=== PATIENT | female | born 1970 | race Caucasian/White ===

== ENCOUNTER 2018-07-03 14:02 | Inpatient (IN) | payer MEDICARE, MEDICAID ==
[~2018-07-03] VITALS: Ht 177.8 cm; Wt 118.8 kg
[~2018-07-03 14:02] MED LIST: AMLO2.5T PO; AMLO5TAB2 PO; ASPI325T17 PO; ATOR40TA78 PO; CARV-39 PO; CHOL200074 PO; ERGO500017 PO; ESOM20CA PO; FOLI0.4T2 PO; LEVE250T5 PO; LISI-170 PO; LORA1TAB PO; MAGN250T9 PO; MELA10TA PO; MULT1TAB60 PO; OXCA300T PO; PARO30TA3 PO; PHEN100C PO; ROSU10TA PO; SODI650T PO; UBID200C7 PO; VENTOLIN HFA; VITA1TAB19 PO; [UNRECOGNIZED DRUG - CODE] PO
[2018-07-03] MEDS ORDERED: CALC480G PO (14:25)
[2018-07-03] MEDS ORDERED: UBID100C24 PO (14:25)
[2018-07-03] MEDS ORDERED: ASPI-515 PO (14:25)
[2018-07-03] MEDS ORDERED: FOLI0.4T2 PO (14:25)
[2018-07-03] MEDS ORDERED: PHEN50TA4 PO (14:25)
[2018-07-03] MEDS ORDERED: RANI150C PO (14:25)
[2018-07-03] MEDS ORDERED: MELA5TAB10 SL (14:25)
[2018-07-03] MEDS ORDERED: LYZINE PO (14:25)
[2018-07-03] MEDS ORDERED: CHOL2000 PO (14:25)
[2018-07-03 14:50] LABS: MICROSCOPIC AUTO
[2018-07-03 15:06] LABS: CULTURE INDICATED? YES
[2018-07-03 15:23] LABS: ALBUMIN 2.7 g/dL (3.4-5.0); ANION GAP 8 mmol/L (5-15); CALCIUM 8.1 mg/dL (8.5-10.1); CHLORIDE 113 mmol/L (98-107); CREATININE 3.86 mg/dL (0.55-1.02)
[2018-07-03 15:27] LABS: TROPONIN I 0.049 ng/mL (0.000-0.045)
[2018-07-03 15:32] LABS: BASOPHILS # (AUTO) 0.03 x10^3/uL (0-0.1); BASOPHILS % (AUTO) 0 % (0-1); EOSINOPHILS # (AUTO) 0.29 x10^3/uL (0-0.4); EOSINOPHILS % (AUTO) 3 % (1-7); LYMPHOCYTES # (AUTO) 2.75 x10^3/uL (1-3.4); LYMPHOCYTES % (AUTO) 27 % (22-44); MD NO; MEAN CORPUSCULAR HEMOGLOBIN 32.4 pg (27.0-34.8); MEAN CORPUSCULAR HGB CONC 34.3 g/dL (32.4-35.8); MEAN CORPUSCULAR VOLUME 94.6 fL (80-100); MEAN PLATELET VOLUME 8.1 fL (7.4-10.4); MONOCYTES # (AUTO) 0.67 x10^3/uL (0.2-0.8); MONOCYTES % (AUTO) 7 % (2-9); NEUTROPHILS # (AUTO) 6.36 x10^3/uL (1.8-6.8); NEUTROPHILS % (AUTO) 63 % (42-75); PLATELET COUNT 212 x10^3/uL (130-400); RED BLOOD COUNT 3.33 x10^6/uL (3.82-5.3); RED CELL DISTRIBUTION WIDTH 12.8 % (9.6-15.2)
[2018-07-03] MEDS ORDERED: CEFTRIAXONE 1,000 MG in SODIUM CHLORIDE 0.9% 50 ML IV ONE (16:00)
[2018-07-03] MEDS ORDERED: CEFTRIAXONE PMX 1GM/50ML 50 ML ONE (16:15)
[2018-07-03] MEDS ORDERED: DOCUSATE 100 MG CAPSULE PO PRN (17:00)
[2018-07-03] MEDS ORDERED: SODIUM CHLORIDE 0.9% 1,000ML IVBOLUS ONE (17:00)
[2018-07-03] MEDS ORDERED: POLYETHYLENE GLYCOL 17 GM PACKET PO PRN (17:00)
[2018-07-03] MEDS ORDERED: ONDANSETRON 2MG/ML, 2ML IVPush PRN (17:00)
[2018-07-03] MEDS ORDERED: ERGOCALCIFEROL 50,000 UNIT CAPSULE PO SCH (17:00)
[2018-07-03 17:22] LABS: THYROID STIMULATING HORMONE 4.34 mIU/L (0.358-3.740)
[2018-07-03 17:52] VITALS: BP 98/61
[2018-07-03] MEDS: SODIUM CHLORIDE 0.9% 1,000 ML IV SCH (18:20)
[2018-07-03 20:09] VITALS: BP 88/52
[2018-07-03 20:10] VITALS: BP 130/80
[2018-07-03 20:18] VITALS: BP 130/75
[2018-07-03] MEDS: HEPARIN 5,000 UNITS/ML, 1ML SQ SCH (20:27)
[2018-07-03] MEDS: PHENYTOIN 100 MG CAPSULE PO SCH (20:28)
[2018-07-03] MEDS: LORazepam 1MG TABLET PO SCH (20:28)
[2018-07-03] MEDS: SODIUM BICARBONATE 650 MG TABLET PO SCH (20:28)
[2018-07-03] MEDS: LEVETIRACETAM 500 MG TABLET PO SCH (20:28)
[2018-07-03] MEDS: ATORVASTATIN 40 MG TABLET PO SCH (20:28)
[2018-07-03] MEDS: OXCARBAZEPINE 300MG TABLET PO SCH (20:31)
[2018-07-03] MEDS ORDERED: MELATONIN 5 MG SL SCH (21:00)
[2018-07-04 01:27] VITALS: BP_SYST 126; BP_SYST 127; BP_SYST 97; BP_DIAS 61; BP_DIAS 65; BP_DIAS 76
[2018-07-04] MEDS: SODIUM CHLORIDE 0.9% 1,000 ML IV SCH ×2 (03:08→12:41)
[2018-07-04] MEDS: HEPARIN 5,000 UNITS/ML, 1ML SQ SCH ×3 (03:17→21:00)
[2018-07-04 05:25] LABS: BASOPHILS # (AUTO) 0.03 x10^3/uL (0-0.1); BASOPHILS % (AUTO) 0 % (0-1); EOSINOPHILS # (AUTO) 0.21 x10^3/uL (0-0.4); EOSINOPHILS % (AUTO) 2 % (1-7); LYMPHOCYTES # (AUTO) 2.04 x10^3/uL (1-3.4); LYMPHOCYTES % (AUTO) 21 % (22-44); MD NO; MEAN CORPUSCULAR HEMOGLOBIN 32.9 pg (27.0-34.8); MEAN PLATELET VOLUME 7.9 fL (7.4-10.4); MONOCYTES # (AUTO) 0.57 x10^3/uL (0.2-0.8); MONOCYTES % (AUTO) 6 % (2-9); NEUTROPHILS # (AUTO) 6.73 x10^3/uL (1.8-6.8); NEUTROPHILS % (AUTO) 70 % (42-75); PLATELET COUNT 181 x10^3/uL (130-400); RED BLOOD COUNT 2.93 x10^6/uL (3.82-5.3); RED CELL DISTRIBUTION WIDTH 12.7 % (9.6-15.2)
[2018-07-04 05:26] LABS: ANION GAP 4 mmol/L (5-15); CALCIUM 7.8 mg/dL (8.5-10.1); CHLORIDE 115 mmol/L (98-107); CREATININE 3.78 mg/dL (0.55-1.02)
[2018-07-04 07:50] VITALS: BP 104/54
[2018-07-04 07:53] VITALS: BP 105/56
[2018-07-04 07:55] VITALS: BP 106/66
[2018-07-04] MEDS: CHOLECALCIFEROL 1,000 UNIT TABLET PO SCH (08:47)
[2018-07-04] MEDS: FOLIC ACID 1 MG TABLET PO SCH (08:47)
[2018-07-04] MEDS: SODIUM BICARBONATE 650 MG TABLET PO SCH ×3 (08:47→21:28)
[2018-07-04] MEDS: ASPIRIN 325 MG TABLET EC PO SCH (08:48)
[2018-07-04] MEDS: OXCARBAZEPINE 300MG TABLET PO SCH ×2 (08:49→21:28)
[2018-07-04] MEDS: PHENYTOIN 100 MG CAPSULE PO SCH ×3 (08:49→21:28)
[2018-07-04] MEDS: FAMOTIDINE 20 MG TABLET PO SCH (08:50)
[2018-07-04] MEDS: LEVETIRACETAM 500 MG TABLET PO SCH ×3 (08:50→21:28)
[2018-07-04] MEDS: PANTOPROZOLE 40MG TABLET PO SCH (08:51)
[2018-07-04] MEDS: LORazepam 1MG TABLET PO SCH ×3 (08:57→21:28)
[2018-07-04] MEDS ORDERED: TEMPLATE NON-FORMULARY MED. (Ubidecarenone (Coq-10) 100 MG) PO SCH (09:00)
[2018-07-04] MEDS ORDERED: LYZINE PO SCH (09:00)
[2018-07-04] MEDS ORDERED: SODIUM CHLORIDE 0.9% 1,000ML IVBOLUS ONE (09:30)
[2018-07-04] MEDS ORDERED: MAGNESIUM SULFATE PMX 2GM/50ML 50 ML IV ONE (09:30)
[2018-07-04] MEDS: ACETAMINOPHEN 325 MG TABLET PO PRN (10:04)
[2018-07-04] MEDS ORDERED: CEFTRIAXONE 1,000 MG IM SCH (10:30)
[2018-07-04 14:00] VITALS: BP 98/59
[2018-07-04] MEDS: CEFTRIAXONE 1,000 MG in SODIUM CHLORIDE 0.9% 50 ML IVPB SCH (15:43)
[2018-07-04 20:00] VITALS: BP 101/51
[2018-07-04] MEDS: ATORVASTATIN 40 MG TABLET PO SCH (21:28)
[2018-07-05 01:42] VITALS: BP_SYST 111; BP_SYST 122; BP_DIAS 47; BP_DIAS 62; BP_DIAS 79
[2018-07-05] MEDS: SODIUM CHLORIDE 0.9% 1,000 ML IV SCH ×3 (01:45→21:38)
[2018-07-05] MEDS: HEPARIN 5,000 UNITS/ML, 1ML SQ SCH ×3 (05:05→21:00)
[2018-07-05 07:21] VITALS: BP_SYST 107; BP_SYST 124; BP_DIAS 56; BP_DIAS 74; BP_DIAS 78
[2018-07-05] MEDS: FAMOTIDINE 20 MG TABLET PO SCH (09:09)
[2018-07-05] MEDS: SODIUM BICARBONATE 650 MG TABLET PO SCH ×3 (09:09→21:03)
[2018-07-05] MEDS: FOLIC ACID 1 MG TABLET PO SCH (09:09)
[2018-07-05] MEDS: LEVETIRACETAM 500 MG TABLET PO SCH ×3 (09:09→21:02)
[2018-07-05] MEDS: PHENYTOIN 100 MG CAPSULE PO SCH ×3 (09:09→20:59)
[2018-07-05] MEDS: CHOLECALCIFEROL 1,000 UNIT TABLET PO SCH (09:10)
[2018-07-05] MEDS: OXCARBAZEPINE 300MG TABLET PO SCH ×2 (09:10→20:58)
[2018-07-05] MEDS: ASPIRIN 325 MG TABLET EC PO SCH (09:10)
[2018-07-05] MEDS: LORazepam 1MG TABLET PO SCH ×3 (09:10→20:59)
[2018-07-05] MEDS: PANTOPROZOLE 40MG TABLET PO SCH (09:10)
[2018-07-05 09:25] LABS: ANION GAP 9 mmol/L (5-15); CALCIUM 8.4 mg/dL (8.5-10.1); CHLORIDE 115 mmol/L (98-107); CREATININE 3.47 mg/dL (0.55-1.02)
[2018-07-05] MEDS: ACETAMINOPHEN 325 MG TABLET PO PRN (11:46)
[2018-07-05 14:00] VITALS: BP 161/78
[2018-07-05] MEDS: CEFTRIAXONE 1,000 MG in SODIUM CHLORIDE 0.9% 50 ML IVPB SCH (15:32)
[2018-07-05 16:45] VITALS: BP 130/81
[2018-07-05 20:00] VITALS: BP 148/81
[2018-07-05] MEDS: ATORVASTATIN 40 MG TABLET PO SCH (20:59)
[2018-07-06 01:51] VITALS: BP 112/60
[2018-07-06] MEDS: HEPARIN 5,000 UNITS/ML, 1ML SQ SCH ×2 (05:00→12:43)
[2018-07-06 07:08] VITALS: BP 147/97
[2018-07-06] MEDS: SODIUM BICARBONATE 650 MG TABLET PO SCH ×2 (07:54→16:11)
[2018-07-06] MEDS: FOLIC ACID 1 MG TABLET PO SCH (07:54)
[2018-07-06] MEDS: OXCARBAZEPINE 300MG TABLET PO SCH (07:54)
[2018-07-06] MEDS: LORazepam 1MG TABLET PO SCH ×2 (07:54→16:11)
[2018-07-06] MEDS: ASPIRIN 325 MG TABLET EC PO SCH (07:54)
[2018-07-06] MEDS: PHENYTOIN 100 MG CAPSULE PO SCH ×2 (07:54→16:11)
[2018-07-06] MEDS: PANTOPROZOLE 40MG TABLET PO SCH (07:54)
[2018-07-06] MEDS: FAMOTIDINE 20 MG TABLET PO SCH (07:55)
[2018-07-06] MEDS: LEVETIRACETAM 500 MG TABLET PO SCH (07:55)
[2018-07-06] MEDS: SODIUM CHLORIDE 0.9% 1,000 ML IV SCH (07:55)
[2018-07-06] MEDS: CHOLECALCIFEROL 1,000 UNIT TABLET PO SCH (07:55)
[2018-07-06 08:32] LABS: BASOPHILS # (AUTO) 0.02 x10^3/uL (0-0.1); BASOPHILS % (AUTO) 0 % (0-1); EOSINOPHILS # (AUTO) 0.21 x10^3/uL (0-0.4); EOSINOPHILS % (AUTO) 2 % (1-7); LYMPHOCYTES # (AUTO) 1.58 x10^3/uL (1-3.4); LYMPHOCYTES % (AUTO) 18 % (22-44); MD NO; MEAN CORPUSCULAR HEMOGLOBIN 31.3 pg (27.0-34.8); MEAN CORPUSCULAR HGB CONC 33.6 g/dL (32.4-35.8); MEAN CORPUSCULAR VOLUME 93.3 fL (80-100); MEAN PLATELET VOLUME 8.3 fL (7.4-10.4); MONOCYTES # (AUTO) 0.48 x10^3/uL (0.2-0.8); MONOCYTES % (AUTO) 6 % (2-9); NEUTROPHILS # (AUTO) 6.28 x10^3/uL (1.8-6.8); NEUTROPHILS % (AUTO) 73 % (42-75); PLATELET COUNT 207 x10^3/uL (130-400); RED BLOOD COUNT 3.27 x10^6/uL (3.82-5.3); RED CELL DISTRIBUTION WIDTH 13.1 % (9.6-15.2)
[2018-07-06 08:41] LABS: ANION GAP 9 mmol/L (5-15); CALCIUM 8.5 mg/dL (8.5-10.1); CHLORIDE 117 mmol/L (98-107); CREATININE 3.09 mg/dL (0.55-1.02)
[2018-07-06] MEDS: ACETAMINOPHEN 325 MG TABLET PO PRN (12:44)
[2018-07-06 12:50] VITALS: BP 148/88
[2018-07-06] MEDS: CEFTRIAXONE 1,000 MG in SODIUM CHLORIDE 0.9% 50 ML IVPB SCH (15:00)
== END 2018-07-06 16:45 | disposition home or self-care (01) | DRG 74 ==
LOC: ED 16:07 → OBSVTOIN 16:08 → EDIP 16:08 → ED 16:50 → 4EST 18:01
PROVIDERS: ADMIT Hospitalist; ATTEND Hospitalist
DX: G90.8 Other disorders of autonomic nervous system (principal); N17.9 Acute kidney failure, unspecified; E44.0 Moderate protein-calorie malnutrition; N30.00 Acute cystitis without hematuria; I12.0 Hypertensive chronic kidney disease with stage 5 chronic kidney disease or end stage renal disease; N18.5 Chronic kidney disease, stage 5; I95.9 Hypotension, unspecified; R00.1 Bradycardia, unspecified; L97.519 Non-pressure chronic ulcer of other part of right foot with unspecified severity; E78.5 Hyperlipidemia, unspecified; G40.909 Epilepsy, unspecified, not intractable, without status epilepticus; G47.00 Insomnia, unspecified; D72.829 Elevated white blood cell count, unspecified; E66.01 Morbid (severe) obesity due to excess calories; Z86.73 Personal history of transient ischemic attack (TIA), and cerebral infarction without residual deficits; Z83.3 Family history of diabetes mellitus; Z79.899 Other long term (current) drug therapy; Z88.0 Allergy status to penicillin; Z88.6 Allergy status to analgesic agent; Z88.8 Allergy status to other drugs, medicaments and biological substances; Z68.37 Body mass index [BMI] 37.0-37.9, adult
CPT/HCPCS: 36415; 71045; 76770; 80048; 80185; 81001; 82040; 83735; 83880; 84100; 84443; 84484; 85025; 87086; 93005; 96365; J0696; J2405; J3475; J7030

== ENCOUNTER 2020-02-22 09:03 | Inpatient (IN) | payer MEDICARE, MEDICAID ==
[~2020-02-22] VITALS: Ht 175.3 cm; Wt 123.1 kg
[~2020-02-22 09:03] MED LIST changes: +AMLO-150 PO; -AMLO2.5T PO; +AMLO2.5T5 PO; -AMLO5TAB2 PO; +ASPI-515 PO; +CALC480G PO; +CHOL2000 PO; +LYZINE PO; +MELA5TAB10 SL; -OXCA300T PO; +OXCA300T19 PO; +PHEN50TA4 PO; +RANI150C PO; -ROSU10TA PO; +ROSU10TA2 PO; +UBID100C24 PO
[2020-02-22] MEDS ORDERED: POTASSIUM CHLORIDE 20 MEQ TAB.ER.PRT PO ONE (09:30)
[2020-02-22] MEDS ORDERED: FUROSEMIDE 20 MG/2 ML IV ONE (09:30)
[2020-02-22] MEDS ORDERED: POTASSIUM CHLORIDE 20 MEQ TAB.ER.PRT ONE (09:40)
[2020-02-22] MEDS ORDERED: FUROSEMIDE 20 MG/2 ML ONE (09:40)
[2020-02-22 10:25] LABS: TROPONIN I 0.168 ng/mL (0.000-0.045)
--- NOTE | 2020-02-22 11:00 | NUR ---
PT RESTING COMFORTABLY. COVID RULEOUT. PLACED ON HOLD AWAITING ROOM.
[2020-02-22] MEDS ORDERED: hydrALAzine 20 MG/ML, 1ML IVPush PRN (13:00)
[2020-02-22] MEDS: FUROSEMIDE 80 MG TABLET PO SCH ×2 (13:00→17:00)
[2020-02-22] MEDS ORDERED: LABETALOL 5MG/ML, 20ML IVPush PRN (13:00)
[2020-02-22] MEDS ORDERED: ACETAMINOPHEN 325 MG TABLET PO PRN (13:00)
[2020-02-22] MEDS ORDERED: BACLOFEN 10 MG TABLET PO PRN (13:00)
[2020-02-22] MEDS ORDERED: GUAIFENESIN/DM 200-20MG, 10ML UDC PO PRN (13:00)
[2020-02-22] MEDS ORDERED: BUTALB/APAP/CAFFEINE 50MG/325MG/40MG PO PRN ×2 (13:00)
--- NOTE | 2020-02-22 13:00 | NUR ---
PT MEDICATED PER JAN. BSC CLEANED AND RECORDED. PT OTHERWISE DOING GOOD. 3P'S ADDRESSED.
[2020-02-22 13:27] LABS: BASOPHILS # (AUTO) 0.04 x10^3/uL (0-0.1); BASOPHILS % (AUTO) 0 % (0-1); EOSINOPHILS % (AUTO) 0 % (1-7); LYMPHOCYTES # (AUTO) 0.48 x10^3/uL (1-3.4); LYMPHOCYTES % (AUTO) 6 % (22-44); MD NO; MEAN CORPUSCULAR HGB CONC 32.5 g/dL (32.4-35.8); MEAN CORPUSCULAR VOLUME 98.4 fL (80-100); MEAN PLATELET VOLUME 7.6 fL (7.4-10.4); MONOCYTES # (AUTO) 0.09 x10^3/uL (0.2-0.8); MONOCYTES % (AUTO) 1 % (2-9); NEUTROPHILS # (AUTO) 7.87 x10^3/uL (1.8-6.8); NEUTROPHILS % (AUTO) 93 % (42-75); PLATELET COUNT 197 x10^3/uL (130-400); RED BLOOD COUNT 3.91 x10^6/uL (3.82-5.3); RED CELL DISTRIBUTION WIDTH 14.8 % (9.6-15.2)
[2020-02-22 13:35] LABS: ANION GAP 15 mmol/L (5-15); CALCIUM 8.6 mg/dL (8.5-10.1); CHLORIDE 108 mmol/L (98-107); CREATININE 5.65 mg/dL (0.55-1.02)
[2020-02-22 13:39] LABS: TROPONIN I 0.157 ng/mL (0.000-0.045)
[2020-02-22] MEDS ORDERED: TRAZODONE 50MG TABLET PO PRN (14:00)
--- NOTE | 2020-02-22 15:53 | NUR ---
PT RESTING COMFORTABLY. MONITOR IN PLACE.
[2020-02-22] MEDS: PHENYTOIN 50 MG TAB.CHEW PO SCH ×2 (16:00→22:09)
[2020-02-22] MEDS: SODIUM BICARBONATE 650 MG TABLET PO SCH ×2 (16:00→22:10)
[2020-02-22] MEDS ORDERED: LEVETIRACETAM 500 MG PO SCH (16:00)
[2020-02-22] MEDS: LORazepam 1MG TABLET PO SCH ×2 (16:00→22:09)
--- NOTE | 2020-02-22 16:18 | NUR ---
patrol judge: Pt's mother requesting update from primary RNPradip notified, contact info
--- NOTE | 2020-02-22 18:30 | NUR ---
PT UP TO BSC INDEPENDENTLY. FEMINE PAD PROVIDED.
[2020-02-22] MEDS ORDERED: LORazepam 1MG TABLET ONE ×2 (18:44→22:06)
[2020-02-22 19:00] LABS: TROPONIN I 0.164 ng/mL (0.000-0.045)
[2020-02-22] MEDS: LACTULOSE 10 GM/15 ML UDC PO SCH (19:34)
[2020-02-22] MEDS: ATORVASTATIN 40 MG TABLET PO SCH (19:34)
[2020-02-22] MEDS: OXCARBAZEPINE 300MG TABLET PO SCH (19:35)
[2020-02-22] MEDS ORDERED: AMLODIPINE 5 MG TABLET PO SCH (21:00)
[2020-02-22] MEDS ORDERED: CARVEDILOL 25 MG TABLET PO SCH (21:00)
[2020-02-22 21:30] VITALS: BP 103/60
[2020-02-22] MEDS: MELATONIN 5 MG TABLET PO SCH (22:09)
[2020-02-22 22:30] VITALS: BP 103/60
--- NOTE | 2020-02-23 00:59 | NUR ---
Break RN: [facility] in [facility]. Respirations even and unlabored.
[2020-02-23 02:12] VITALS: BP 117/68
[2020-02-23 04:07] VITALS: BP 106/69
[2020-02-23 05:11] LABS: ANION GAP 13 mmol/L (5-15); CALCIUM 8.1 mg/dL (8.5-10.1); CHLORIDE 110 mmol/L (98-107); CHOLESTEROL, TOTAL 101 mg/dL (140-239); CREATININE 5.66 mg/dL (0.55-1.02); TRIGLYCERIDES 84 mg/dL (50-200); VLDL CHOLESTEROL 17 mg/dL (0-25)
[2020-02-23 05:14] LABS: MEAN CORPUSCULAR HEMOGLOBIN 32.3 pg (27.0-34.8); MEAN CORPUSCULAR HGB CONC 32.9 g/dL (32.4-35.8); MEAN CORPUSCULAR VOLUME 98.2 fL (80-100); MEAN PLATELET VOLUME 7.9 fL (7.4-10.4); PLATELET COUNT 179 x10^3/uL (130-400); RED BLOOD COUNT 3.08 x10^6/uL (3.82-5.3); RED CELL DISTRIBUTION WIDTH 14.5 % (9.6-15.2)
[2020-02-23 05:30] LABS: CHOL/HDL RATIO 1.9; HDL CHOL % 51 % (28-40); HDL CHOLESTEROL (DIRECT) 52 mg/dL (40-60); LDL CHOLESTEROL,CALCULATED 32 mg/dL (54-169); LDL/HDL RATIO 0.6 (0.5-3.0)
[2020-02-23 05:43] LABS: BASOPHILS # (AUTO) 0.03 x10^3/uL (0-0.1); BASOPHILS % (AUTO) 0 % (0-1); EOSINOPHILS # (AUTO) 0.03 x10^3/uL (0-0.4); EOSINOPHILS % (AUTO) 1 % (1-7); LYMPHOCYTES # (AUTO) 1.24 x10^3/uL (1-3.4); LYMPHOCYTES % (AUTO) 21 % (22-44); MD SCAN; MONOCYTES # (AUTO) 0.48 x10^3/uL (0.2-0.8); MONOCYTES % (AUTO) 8 % (2-9); NEUTROPHILS # (AUTO) 4.22 x10^3/uL (1.8-6.8); NEUTROPHILS % (AUTO) 70 % (42-75)
[2020-02-23 05:45] VITALS: BP 104/68
[2020-02-23] MEDS ORDERED: TEMPLATE NON-FORMULARY MED. (Ubidecarenone (Coq-10) 100 MG) PO SCH (09:00)
[2020-02-23] MEDS ORDERED: LYZINE PO SCH (09:00)
[2020-02-23] MEDS ORDERED: LISINOPRIL 20 MG TABLET PO SCH (09:00)
[2020-02-23 09:30] VITALS: BP 92/50
[2020-02-23] MEDS: SODIUM BICARBONATE 650 MG TABLET PO SCH ×3 (09:33→20:11)
[2020-02-23] MEDS: LORazepam 1MG TABLET PO SCH ×3 (09:33→20:11)
[2020-02-23] MEDS: LISINOPRIL 10 MG TABLET PO SCH ×2 (09:34→10:05)
[2020-02-23] MEDS: FAMOTIDINE 20 MG TABLET PO SCH (09:34)
[2020-02-23] MEDS: FOLIC ACID 1 MG TABLET PO SCH (09:34)
[2020-02-23] MEDS: PANTOPRAZOLE 40MG TABLET PO SCH (09:34)
[2020-02-23] MEDS: LEVETIRACETAM 500 MG TABLET PO SCH ×3 (09:34→20:11)
[2020-02-23] MEDS: OXCARBAZEPINE 300MG TABLET PO SCH ×2 (09:34→20:11)
[2020-02-23] MEDS: PHENYTOIN 50 MG TAB.CHEW PO SCH ×3 (09:34→20:11)
[2020-02-23] MEDS: LACTULOSE 10 GM/15 ML UDC PO SCH ×4 (09:35→20:34)
[2020-02-23 14:19] VITALS: BP 105/57
[2020-02-23] MEDS: FUROSEMIDE 40 MG TABLET PO SCH (17:21)
[2020-02-23 20:11] VITALS: BP 127/70
[2020-02-23] MEDS: ATORVASTATIN 40 MG TABLET PO SCH (20:11)
[2020-02-23] MEDS: MELATONIN 5 MG TABLET PO SCH (20:11)
[2020-02-24 02:00] VITALS: BP 91/46
[2020-02-24 08:17] LABS: ANION GAP 13 mmol/L (5-15); CALCIUM 8.4 mg/dL (8.5-10.1); CHLORIDE 111 mmol/L (98-107); CREATININE 6.51 mg/dL (0.55-1.02)
[2020-02-24] MEDS: PHENYTOIN 50 MG TAB.CHEW PO SCH ×3 (09:26→21:28)
[2020-02-24] MEDS: SODIUM BICARBONATE 650 MG TABLET PO SCH ×3 (09:27→21:08)
[2020-02-24] MEDS: FUROSEMIDE 40 MG TABLET PO SCH (09:27)
[2020-02-24] MEDS: PANTOPRAZOLE 40MG TABLET PO SCH (09:27)
[2020-02-24] MEDS: LORazepam 1MG TABLET PO SCH ×3 (09:27→21:08)
[2020-02-24] MEDS: FAMOTIDINE 20 MG TABLET PO SCH (09:27)
[2020-02-24] MEDS: FOLIC ACID 1 MG TABLET PO SCH (09:27)
[2020-02-24] MEDS: LACTULOSE 10 GM/15 ML UDC PO SCH ×2 (09:27→21:00)
[2020-02-24] MEDS: LEVETIRACETAM 500 MG TABLET PO SCH ×3 (09:27→21:09)
[2020-02-24] MEDS: OXCARBAZEPINE 300MG TABLET PO SCH ×2 (09:27→21:08)
[2020-02-24 14:10] VITALS: BP 118/61
[2020-02-24 18:40] VITALS: BP 121/74
[2020-02-24] MEDS: MELATONIN 5 MG TABLET PO SCH (21:08)
[2020-02-24] MEDS: ATORVASTATIN 40 MG TABLET PO SCH (21:08)
[2020-02-25 00:37] VITALS: BP 105/70
[2020-02-25] MEDS ORDERED: DIPHENHYDRAMINE 50 MG/ML, 1ML IVPush ONE (05:30)
[2020-02-25 06:21] LABS: ANION GAP 13 mmol/L (5-15); CALCIUM 8.2 mg/dL (8.5-10.1); CHLORIDE 110 mmol/L (98-107); CREATININE 6.65 mg/dL (0.55-1.02)
[2020-02-25 07:25] VITALS: BP 98/56
[2020-02-25] MEDS: PHENYTOIN 50 MG TAB.CHEW PO SCH ×3 (08:22→22:14)
[2020-02-25] MEDS: LEVETIRACETAM 500 MG TABLET PO SCH ×3 (08:22→22:04)
[2020-02-25] MEDS: SODIUM BICARBONATE 650 MG TABLET PO SCH ×3 (08:22→22:13)
[2020-02-25] MEDS: LORazepam 1MG TABLET PO SCH ×3 (08:22→22:04)
[2020-02-25] MEDS: FAMOTIDINE 20 MG TABLET PO SCH (08:22)
[2020-02-25] MEDS: LACTULOSE 10 GM/15 ML UDC PO SCH ×4 (08:22→21:00)
[2020-02-25] MEDS: FOLIC ACID 1 MG TABLET PO SCH (08:22)
[2020-02-25] MEDS: PANTOPRAZOLE 40MG TABLET PO SCH (08:23)
[2020-02-25] MEDS: OXCARBAZEPINE 300MG TABLET PO SCH ×2 (08:23→22:04)
[2020-02-25 14:15] VITALS: BP 110/76
[2020-02-25 18:52] VITALS: BP 127/81
[2020-02-25] MEDS: ATORVASTATIN 40 MG TABLET PO SCH (22:04)
[2020-02-25] MEDS: MELATONIN 5 MG TABLET PO SCH (22:04)
[2020-02-26 01:06] VITALS: BP 115/73
[2020-02-26 04:48] LABS: ANION GAP 12 mmol/L (5-15); CHLORIDE 112 mmol/L (98-107)
[2020-02-26 04:50] LABS: CREATININE 6.49 mg/dL (0.55-1.02)
[2020-02-26 06:49] VITALS: BP 116/71
[2020-02-26] MEDS: FAMOTIDINE 20 MG TABLET PO SCH (08:10)
[2020-02-26] MEDS: LEVETIRACETAM 500 MG TABLET PO SCH (08:10)
[2020-02-26] MEDS: LORazepam 1MG TABLET PO SCH (08:11)
[2020-02-26] MEDS: OXCARBAZEPINE 300MG TABLET PO SCH (08:11)
[2020-02-26] MEDS: PANTOPRAZOLE 40MG TABLET PO SCH (08:11)
[2020-02-26] MEDS: LACTULOSE 10 GM/15 ML UDC PO SCH (08:11)
[2020-02-26] MEDS: SODIUM BICARBONATE 650 MG TABLET PO SCH (08:11)
[2020-02-26] MEDS: FOLIC ACID 1 MG TABLET PO SCH (08:11)
[2020-02-26] MEDS: PHENYTOIN 50 MG TAB.CHEW PO SCH (08:30)
== END 2020-02-26 12:04 | disposition home or self-care (01) | DRG 291 ==
LOC: ED 09:07 → EDIP 10:45 → 3WST 02-23 05:45 → 4WST 02-24 14:10 → 3N 02-24 17:34
PROVIDERS: ADMIT Internal Medicine; ATTEND Internal Medicine
DX: I13.2 Hypertensive heart and chronic kidney disease with heart failure and with stage 5 chronic kidney disease, or end stage renal disease (principal); I50.43 Acute on chronic combined systolic (congestive) and diastolic (congestive) heart failure; N17.0 Acute kidney failure with tubular necrosis; E43 Unspecified severe protein-calorie malnutrition; N18.5 Chronic kidney disease, stage 5; Z68.41 Body mass index [BMI] 40.0-44.9, adult; I50.9 Heart failure, unspecified; J44.9 Chronic obstructive pulmonary disease, unspecified; E78.00 Pure hypercholesterolemia, unspecified; K21.9 Gastro-esophageal reflux disease without esophagitis; E78.5 Hyperlipidemia, unspecified; G40.909 Epilepsy, unspecified, not intractable, without status epilepticus; E66.01 Morbid (severe) obesity due to excess calories; Z88.0 Allergy status to penicillin; Z88.6 Allergy status to analgesic agent; Z88.8 Allergy status to other drugs, medicaments and biological substances; Z86.73 Personal history of transient ischemic attack (TIA), and cerebral infarction without residual deficits; Z90.89 Acquired absence of other organs; Z90.49 Acquired absence of other specified parts of digestive tract; Z87.891 Personal history of nicotine dependence; Z20.828 Contact with and (suspected) exposure to other viral communicable diseases
CPT/HCPCS: 36415; 80048; 80061; 80069; 80185; 83735; 83880; 84443; 84484; 85025; 93005; 93306; 93356; 99285; G0378; J1200; J1940

== ENCOUNTER 2020-05-08 21:35 | Emergency (ER) | payer MEDICARE, MEDICAID ==
[~2020-05-08] VITALS: Ht 175.3 cm; Wt 112.7 kg
[~2020-05-08 21:35] MED LIST changes: +MULT-449 PO; -MULT1TAB60 PO
[2020-05-08 21:43] VITALS: BP 144/80
[2020-05-08 22:54] LABS: BASOPHILS % (AUTO) 1 % (0-1); EOSINOPHILS # (AUTO) 0.11 x10^3/uL (0-0.4); EOSINOPHILS % (AUTO) 1 % (1-7); LYMPHOCYTES # (AUTO) 1.71 x10^3/uL (1-3.4); LYMPHOCYTES % (AUTO) 22 % (22-44); MD NO; MEAN CORPUSCULAR HGB CONC 32.4 g/dL (32.4-35.8); MEAN CORPUSCULAR VOLUME 98.7 fL (80-100); MEAN PLATELET VOLUME 8.6 fL (7.4-10.4); MONOCYTES # (AUTO) 0.72 x10^3/uL (0.2-0.8); MONOCYTES % (AUTO) 9 % (2-9); NEUTROPHILS # (AUTO) 5.29 x10^3/uL (1.8-6.8); NEUTROPHILS % (AUTO) 67 % (42-75); PLATELET COUNT 170 x10^3/uL (130-400); RED BLOOD COUNT 3.03 x10^6/uL (3.82-5.3)
[2020-05-08 23:04] LABS: ALANINE AMINOTRANSFERASE 16 U/L (12-78); ANION GAP 9 mmol/L (5-15); CALCIUM 8.7 mg/dL (8.5-10.1); CHLORIDE 104 mmol/L (98-107); CREATININE 4.94 mg/dL (0.55-1.02)
[2020-05-08 23:07] LABS: ALKALINE PHOSPHATASE 122 U/L (45-117); BILIRUBIN,TOTAL 0.4 mg/dL (0.2-1.0)
--- NOTE | 2020-05-08 23:26 | NUR ---
PT GIVEN URINE CUP AND INSTRUCTIONS FOR SAMPLE COLLECTION. PT DISMISSIVE TOWARDS NURSE AND REQUEST. PT INFORMED THAT URINE IS THE LAST TEST TO BE PERFORMED. PT STILL SITTING IN BED. VERBALIZES UNDERSTANDING, BUT DENIES ANY ABILITY OR DESIRE TO MOVE AT THIS TIME. PT PROVIDED WITH WATER, CUP LEFT AT BEDSIDE, INSTRUCTIONS TO RESTROOM GIVEN. PT VERBALIZES UNDERSTANDING, CONTINUES DOING HER PUZZLE BOOK AND MAKES NO EFFORT AT MOVING. CALL LIGHT IN REACH.
[2020-05-08 23:56] LABS: MICROSCOPIC INDICATED
--- NOTE | 2020-05-09 00:18 | NUR ---
DIALYSIS PORT IN UPPER LEFT CHEST REDRESSED WITH CENTRAL LINE KIT AND SKIN PREP. PT TOLERATED WELL. DISCHARGED WITHOUT ISSUE.
== END 2020-05-09 00:19 | disposition home or self-care (01) ==
LOC: ED 23:40
DX: T82.838A Hemorrhage due to vascular prosthetic devices, implants and grafts, initial encounter (principal); R94.31 Abnormal electrocardiogram [ECG] [EKG]; J45.909 Unspecified asthma, uncomplicated; Z86.73 Personal history of transient ischemic attack (TIA), and cerebral infarction without residual deficits
CPT/HCPCS: 36415; 71045; 80053; 81001; 83690; 85025; 87086; 93005; 99285

== ENCOUNTER 2020-06-02 21:11 | Inpatient (IN) | payer MEDICARE, MEDICAID ==
[~2020-06-02] VITALS: Ht 175.3 cm; Wt 115.0 kg
--- NOTE | 2020-06-02 21:36 | NUR ---
PT SENT FROM [facility] FOR POSITIVE TROP OF 0.110. PT HAD DIALYSIS TODAY, STATES SHE STARTED HAVING CHEST PAIN MID TREATMENT. PT A&OX4, C/O MIDSTERNAL CHEST PAIN 6/10 INTENSITY. PT DENIED IV IN HOME BABY SITTER.
[2020-06-02] MEDS ORDERED: ONDANSETRON 2MG/ML, 2ML ONE (21:57)
[2020-06-02] MEDS ORDERED: MORPHINE SULFATE 4 MG/ML, 1ML ONE (21:57)
[2020-06-02] MEDS ORDERED: PHENYTOIN 100 MG CAPSULE ONE (21:57)
[2020-06-02] MEDS ORDERED: ONDANSETRON 2MG/ML, 2ML IVPush ONE (22:00)
[2020-06-02] MEDS ORDERED: SODIUM CHLORIDE FLUSH 10ML SYR IVF ONE (22:00)
[2020-06-02] MEDS ORDERED: MORPHINE SULFATE 4 MG/ML, 1ML IVPush PRN (22:00)
[2020-06-02] MEDS ORDERED: PHENYTOIN 100 MG CAPSULE PO ONE (22:00)
[2020-06-02 22:01] LABS: BASOPHILS # (AUTO) 0.04 x10^3/uL (0-0.1); BASOPHILS % (AUTO) 1 % (0-1); EOSINOPHILS # (AUTO) 0.19 x10^3/uL (0-0.4); EOSINOPHILS % (AUTO) 3 % (1-7); LYMPHOCYTES # (AUTO) 1.25 x10^3/uL (1-3.4); LYMPHOCYTES % (AUTO) 18 % (22-44); MD NO; MEAN CORPUSCULAR HEMOGLOBIN 32.5 pg (27.0-34.8); MEAN CORPUSCULAR HGB CONC 32.2 g/dL (32.4-35.8); MEAN PLATELET VOLUME 8.5 fL (7.4-10.4); MONOCYTES # (AUTO) 0.71 x10^3/uL (0.2-0.8); MONOCYTES % (AUTO) 10 % (2-9); NEUTROPHILS # (AUTO) 4.88 x10^3/uL (1.8-6.8); NEUTROPHILS % (AUTO) 69 % (42-75); PLATELET COUNT 162 x10^3/uL (130-400); RED CELL DISTRIBUTION WIDTH 19.3 % (9.6-15.2)
[2020-06-02 22:14] LABS: ALBUMIN 3.1 g/dL (3.4-5.0); ANION GAP 7 mmol/L (5-15); CALCIUM 8.7 mg/dL (8.5-10.1); CHLORIDE 102 mmol/L (98-107); CREATININE 3.85 mg/dL (0.55-1.02)
[2020-06-02 22:17] LABS: TROPONIN I 0.118 ng/mL (0.000-0.045)
[2020-06-03] MEDS ORDERED: NITROGLYCERIN 0.4 MG BOTTLE (25 TABS) SL PRN ×2
[2020-06-03] MEDS ORDERED: ONDANSETRON 2MG/ML, 2ML IVPush PRN
[2020-06-03] MEDS ORDERED: POLYETHYLENE GLYCOL 17 GM PACKET PO PRN
[2020-06-03] MEDS ORDERED: BISACODYL 10 MG SUPP PR PRN
[2020-06-03] MEDS ORDERED: morphine SULFATE 10 MG/ML, 1ML IVPush PRN
[2020-06-03] MEDS: CEFTRIAXONE PMX 1GM/50ML 50 ML IV SCH (00:54)
[2020-06-03] MEDS: HEPARIN 5,000 UNITS/ML, 1ML SQ SCH ×3 (00:54→22:01)
[2020-06-03] MEDS: LORazepam 1MG TABLET PO SCH ×4 (00:54→21:59)
[2020-06-03] MEDS: MELATONIN 5 MG TABLET PO SCH ×2 (00:54→21:59)
[2020-06-03 01:00] VITALS: BP 125/84
[2020-06-03] MEDS: VITAMIN D 50000 UNIT MC SCH ×3 (01:00→17:06)
[2020-06-03] MEDS ORDERED: REGADENOSON 0.4 MG/5 ML SYRINGE ONE (08:24)
[2020-06-03 08:46] VITALS: BP 137/84
[2020-06-03] MEDS ORDERED: LYZINE PO SCH (09:00)
[2020-06-03] MEDS: SENNA/DOCUSATE TABLET PO SCH (09:00)
[2020-06-03] MEDS ORDERED: TEMPLATE NON-FORMULARY MED. (Ubidecarenone (Coq-10) 100 MG) PO SCH (09:00)
[2020-06-03] MEDS: SODIUM BICARBONATE 650 MG TABLET PO SCH ×3 (10:05→21:59)
[2020-06-03] MEDS: FAMOTIDINE 20 MG TABLET PO SCH (10:05)
[2020-06-03] MEDS: CARVEDILOL 25 MG TABLET PO SCH ×2 (10:06→20:31)
[2020-06-03] MEDS: LEVETIRACETAM 500 MG TABLET PO SCH ×3 (10:06→21:59)
[2020-06-03] MEDS: ASPIRIN 325 MG TABLET EC PO SCH (10:06)
[2020-06-03] MEDS: AMLODIPINE 5 MG TABLET PO SCH ×2 (10:07→21:59)
[2020-06-03] MEDS: LISINOPRIL 20 MG TABLET PO SCH (10:07)
[2020-06-03] MEDS: OXCARBAZEPINE 300MG TABLET PO SCH ×2 (10:08→21:58)
[2020-06-03] MEDS: PHENYTOIN 100 MG CAPSULE PO SCH ×3 (10:08→21:59)
[2020-06-03] MEDS ORDERED: ACETAMINOPHEN 325 MG TABLET ONE (10:28)
[2020-06-03] MEDS ORDERED: ACETAMINOPHEN 325 MG TABLET PO PRN (10:30)
[2020-06-03] MEDS ORDERED: ERGOCALCIFEROL 50,000 UNIT CAPSULE PO SCH (12:00)
[2020-06-03 12:55] LABS: TROPONIN I 0.111 ng/mL (0.000-0.045)
[2020-06-03 13:24] VITALS: BP 100/62
[2020-06-03 20:38] VITALS: BP 115/68
[2020-06-03] MEDS: ATORVASTATIN 40 MG TABLET PO SCH (21:59)
[2020-06-03] MEDS: CHOLECALCIFEROL 1,000 UNIT TABLET PO SCH (22:01)
[2020-06-03] MEDS: FOLIC ACID 1 MG TABLET PO SCH (22:01)
[2020-06-04] MEDS: CEFTRIAXONE PMX 1GM/50ML 50 ML IV SCH ×2 (00:50→05:30)
[2020-06-04] MEDS: VITAMIN D 50000 UNIT MC SCH ×2 (01:32→09:00)
[2020-06-04 02:05] VITALS: BP 113/72
[2020-06-04] MEDS: HEPARIN 5,000 UNITS/ML, 1ML SQ SCH ×3 (05:10→21:04)
[2020-06-04 05:50] LABS: ANION GAP 10 mmol/L (5-15); CHLORIDE 100 mmol/L (98-107)
[2020-06-04 06:46] VITALS: BP 120/76
[2020-06-04] MEDS: CARVEDILOL 25 MG TABLET PO SCH ×2 (09:00→21:00)
[2020-06-04] MEDS: SENNA/DOCUSATE TABLET PO SCH (09:00)
[2020-06-04] MEDS: OXCARBAZEPINE 300MG TABLET PO SCH ×2 (09:40→21:03)
[2020-06-04] MEDS: FAMOTIDINE 20 MG TABLET PO SCH (09:40)
[2020-06-04] MEDS: ASPIRIN 325 MG TABLET EC PO SCH (09:41)
[2020-06-04] MEDS: AMLODIPINE 5 MG TABLET PO SCH ×2 (09:41→21:03)
[2020-06-04] MEDS: LEVETIRACETAM 500 MG TABLET PO SCH ×3 (09:41→21:03)
[2020-06-04] MEDS: LORazepam 1MG TABLET PO SCH ×3 (09:41→21:04)
[2020-06-04] MEDS: PHENYTOIN 100 MG CAPSULE PO SCH ×3 (09:41→21:03)
[2020-06-04] MEDS: FOLIC ACID 1 MG TABLET PO SCH (09:41)
[2020-06-04] MEDS: CHOLECALCIFEROL 1,000 UNIT TABLET PO SCH (09:41)
[2020-06-04] MEDS: LISINOPRIL 20 MG TABLET PO SCH (09:42)
[2020-06-04] MEDS: SODIUM BICARBONATE 650 MG TABLET PO SCH ×3 (09:45→21:03)
[2020-06-04] MEDS: HYDROcodone/APAP 5/325 TABLET PO PRN ×2 (10:27→16:30)
[2020-06-04 12:40] VITALS: BP 105/64
[2020-06-04 19:21] VITALS: BP 116/75
[2020-06-04] MEDS: ATORVASTATIN 40 MG TABLET PO SCH (21:03)
[2020-06-04] MEDS: MELATONIN 5 MG TABLET PO SCH (21:03)
[2020-06-05 00:58] VITALS: BP 114/75
[2020-06-05] MEDS: CEFTRIAXONE PMX 1GM/50ML 50 ML IV SCH (05:03)
[2020-06-05] MEDS: HEPARIN 5,000 UNITS/ML, 1ML SQ SCH ×3 (05:03→21:23)
[2020-06-05 06:35] VITALS: BP 125/74
[2020-06-05 08:00] LABS: ANION GAP 11 mmol/L (5-15); BASOPHILS # (AUTO) 0.02 x10^3/uL (0-0.1); BASOPHILS % (AUTO) 0 % (0-1); CALCIUM 8.9 mg/dL (8.5-10.1); CHLORIDE 100 mmol/L (98-107); CREATININE 4.93 mg/dL (0.55-1.02); EOSINOPHILS # (AUTO) 0.29 x10^3/uL (0-0.4); EOSINOPHILS % (AUTO) 4 % (1-7); LYMPHOCYTES # (AUTO) 1.53 x10^3/uL (1-3.4); LYMPHOCYTES % (AUTO) 21 % (22-44); MD NO; MEAN CORPUSCULAR HEMOGLOBIN 32.2 pg (27.0-34.8); MEAN CORPUSCULAR HGB CONC 31.6 g/dL (32.4-35.8); MEAN CORPUSCULAR VOLUME 102.1 fL (80-100); MEAN PLATELET VOLUME 8.6 fL (7.4-10.4); MONOCYTES # (AUTO) 0.66 x10^3/uL (0.2-0.8); MONOCYTES % (AUTO) 9 % (2-9); NEUTROPHILS # (AUTO) 4.76 x10^3/uL (1.8-6.8); NEUTROPHILS % (AUTO) 66 % (42-75); PLATELET COUNT 162 x10^3/uL (130-400); RED BLOOD COUNT 3.52 x10^6/uL (3.82-5.3); RED CELL DISTRIBUTION WIDTH 19.2 % (9.6-15.2)
[2020-06-05] MEDS: CARVEDILOL 25 MG TABLET PO SCH (08:07)
[2020-06-05] MEDS: SENNA/DOCUSATE TABLET PO SCH (09:00)
[2020-06-05] MEDS: PHENYTOIN 100 MG CAPSULE PO SCH ×3 (09:17→21:23)
[2020-06-05] MEDS: ASPIRIN 325 MG TABLET EC PO SCH (09:17)
[2020-06-05] MEDS: LORazepam 1MG TABLET PO SCH ×3 (09:17→21:22)
[2020-06-05] MEDS: OXCARBAZEPINE 300MG TABLET PO SCH ×2 (09:18→21:25)
[2020-06-05] MEDS: FAMOTIDINE 20 MG TABLET PO SCH (09:18)
[2020-06-05] MEDS: CHOLECALCIFEROL 1,000 UNIT TABLET PO SCH (09:18)
[2020-06-05] MEDS: AMLODIPINE 5 MG TABLET PO SCH ×2 (09:18→21:23)
[2020-06-05] MEDS: LEVETIRACETAM 500 MG TABLET PO SCH ×3 (09:18→21:23)
[2020-06-05] MEDS: FOLIC ACID 1 MG TABLET PO SCH (09:18)
[2020-06-05] MEDS: LISINOPRIL 20 MG TABLET PO SCH (09:18)
[2020-06-05] MEDS: SODIUM CHLORIDE 0.9% 1,000 ML IV SCH ×2 (10:53→23:01)
[2020-06-05] MEDS ORDERED: MIDAZOLAM 1 MG/ML, 5ML ONE (11:48)
[2020-06-05] MEDS ORDERED: FENTANYL PF 100 MCG/2ML ONE (11:48)
[2020-06-05] MEDS ORDERED: HEPARIN 1,000 UNITS/ML, 10ML ONE (11:49)
[2020-06-05] MEDS ORDERED: VERAPAMIL 2.5 MG/ML, 2ML ONE (11:49)
[2020-06-05] MEDS ORDERED: LIDOCAINE-MPF 1%, 5ML ONE (11:49)
[2020-06-05 12:16] LABS: INTERNATIONAL NORMALIZED RATIO 1.07 (0.93-1.1); PROTHROMBIN TIME 11.4 Seconds (9.6-11.5)
[2020-06-05 13:03] VITALS: BP 106/72
[2020-06-05] MEDS: HYDROcodone/APAP 5/325 TABLET PO PRN (19:35)
[2020-06-05 21:12] VITALS: BP 127/85
[2020-06-05] MEDS: CARVEDILOL 12.5 MG TABLET PO SCH (21:22)
[2020-06-05] MEDS: ATORVASTATIN 40 MG TABLET PO SCH (21:23)
[2020-06-05] MEDS: MELATONIN 5 MG TABLET PO SCH (21:23)
[2020-06-06 00:24] VITALS: BP 113/72
[2020-06-06] MEDS: CEFTRIAXONE PMX 1GM/50ML 50 ML IV SCH (05:35)
[2020-06-06] MEDS: HEPARIN 5,000 UNITS/ML, 1ML SQ SCH ×2 (05:35→13:28)
[2020-06-06 06:03] LABS: BASOPHILS # (AUTO) 0.02 x10^3/uL (0-0.1); BASOPHILS % (AUTO) 0 % (0-1); EOSINOPHILS # (AUTO) 0.26 x10^3/uL (0-0.4); EOSINOPHILS % (AUTO) 5 % (1-7); LYMPHOCYTES # (AUTO) 1.35 x10^3/uL (1-3.4); LYMPHOCYTES % (AUTO) 25 % (22-44); MD NO; MEAN CORPUSCULAR HEMOGLOBIN 32.8 pg (27.0-34.8); MEAN CORPUSCULAR HGB CONC 32.2 g/dL (32.4-35.8); MEAN PLATELET VOLUME 8.9 fL (7.4-10.4); MONOCYTES # (AUTO) 0.62 x10^3/uL (0.2-0.8); MONOCYTES % (AUTO) 11 % (2-9); NEUTROPHILS # (AUTO) 3.25 x10^3/uL (1.8-6.8); NEUTROPHILS % (AUTO) 59 % (42-75); PLATELET COUNT 146 x10^3/uL (130-400); RED BLOOD COUNT 3.48 x10^6/uL (3.82-5.3); RED CELL DISTRIBUTION WIDTH 19.3 % (9.6-15.2)
[2020-06-06 06:31] LABS: ANION GAP 6 mmol/L (5-15); CALCIUM 8.7 mg/dL (8.5-10.1); CHLORIDE 99 mmol/L (98-107)
[2020-06-06 06:33] LABS: CREATININE 3.77 mg/dL (0.55-1.02)
[2020-06-06 07:35] VITALS: BP 121/78
[2020-06-06] MEDS: AMLODIPINE 5 MG TABLET PO SCH (08:55)
[2020-06-06] MEDS: ASPIRIN 325 MG TABLET EC PO SCH (08:55)
[2020-06-06] MEDS: FAMOTIDINE 20 MG TABLET PO SCH (08:55)
[2020-06-06] MEDS: PHENYTOIN 100 MG CAPSULE PO SCH (08:55)
[2020-06-06] MEDS: CARVEDILOL 12.5 MG TABLET PO SCH (08:56)
[2020-06-06] MEDS: OXCARBAZEPINE 300MG TABLET PO SCH (08:56)
[2020-06-06] MEDS: LEVETIRACETAM 500 MG TABLET PO SCH (08:56)
[2020-06-06] MEDS: LORazepam 1MG TABLET PO SCH (08:56)
[2020-06-06] MEDS: LISINOPRIL 20 MG TABLET PO SCH (08:56)
[2020-06-06] MEDS: CHOLECALCIFEROL 1,000 UNIT TABLET PO SCH (08:57)
[2020-06-06] MEDS: FOLIC ACID 1 MG TABLET PO SCH (08:58)
[2020-06-06] MEDS: SENNA/DOCUSATE TABLET PO SCH (08:59)
[2020-06-06 12:26] VITALS: BP 112/78
[2020-06-06] MEDS: SODIUM CHLORIDE 0.9% 1,000 ML IV SCH (13:40)
[2020-06-06] MEDS ORDERED: CARV12.52 PO (14:54)
== END 2020-06-06 15:30 | disposition home or self-care (01) | DRG 286 ==
LOC: ED 22:13 → INTOOBSV 22:56 → EDIP 22:56 → 5SO 06-03 00:27 → OBSVTOIN 06-03 13:02 → DCLOUNGE 06-06 15:18
PROVIDERS: ADMIT Internal Medicine; ATTEND Internal Medicine
PROC: 4A023N7 Measurement of Cardiac Sampling and Pressure, Left Heart, Percutaneous Approach (ICD-10-PCS; principal; 2020-06-05)
PROC: B2111ZZ Fluoroscopy of Multiple Coronary Arteries using Low Osmolar Contrast (ICD-10-PCS; 2020-06-05)
PROC: B2151ZZ Fluoroscopy of Left Heart using Low Osmolar Contrast (ICD-10-PCS; 2020-06-05)
DX: R07.89 Other chest pain (principal); N18.6 End stage renal disease; I13.2 Hypertensive heart and chronic kidney disease with heart failure and with stage 5 chronic kidney disease, or end stage renal disease; N39.0 Urinary tract infection, site not specified; I50.42 Chronic combined systolic (congestive) and diastolic (congestive) heart failure; I67.5 Moyamoya disease; I42.8 Other cardiomyopathies; Z99.2 Dependence on renal dialysis; G40.909 Epilepsy, unspecified, not intractable, without status epilepticus; E66.01 Morbid (severe) obesity due to excess calories; A59.9 Trichomoniasis, unspecified; D63.1 Anemia in chronic kidney disease; E78.5 Hyperlipidemia, unspecified; I34.0 Nonrheumatic mitral (valve) insufficiency; I37.1 Nonrheumatic pulmonary valve insufficiency; Z68.37 Body mass index [BMI] 37.0-37.9, adult; Z83.3 Family history of diabetes mellitus; Z86.73 Personal history of transient ischemic attack (TIA), and cerebral infarction without residual deficits; Z87.891 Personal history of nicotine dependence
CPT/HCPCS: 36415; 78452; 80048; 80185; 82040; 84484; 85025; 85610; 86705; 86706; 87340; 93005; 93017; 93308; 93321; 93325; 93458; 96374; 99156; 99285; C1769; C1894; G0378; J0696; J1644; J2250; J2405; J2785; J3010; A9502; C9898; J2270; Q9967